=== PATIENT | female | born 1975 | race Caucasian/White ===

== ENCOUNTER 2025-01-20 08:23 | Outpatient (AMB) | payer OTHER, SELFPAY ==
--- NOTE | 2025-01-20 08:33 | MHC.OFFVIS ---
Intake Visit Reasons: ADHD Allergies No Known Allergies Allergy (Verified 01/20/25 08:33) Medication List - Last Reconciled 01/20/25 by Jaye Pastor CNP dextroamphetamine-amphetamine 20 mg (Adderall) 20 mg PO BID 30 days hydroxyzine HCl 25 mg PO lorazepam 0.5 mg PO BEDTIME PRN HPI Comments Details: She was doing okay. She had foot surgery in 09/2024 that required revision. She was taking Adderall 20mg and occasionally second dose in afternoon as needed. Medication helped with focus and was able to complete tasks, has energy to get through day. She notices a difference without the medication. Works at [employer]. Some stress. Her daughter in college was having some shaking in her hands. Sleep was okay.? Pt was having difficulty focusing since she was a kid and it is getting worse. She can't keep up with tasks. She barely made it through high school, went to college. She hasn't been dx with ADHD. No fam Hx of ADHD. She had head injury when she was 4yrs, she dropped off the deck. She sleeps 7hrs per night. She wakes up a lot because of some dreams and urine frequency. She has hard time going back to sleep when she wakes up. She has IBS controlled with diet. She has decreased hearing on the left ear and neck pain. Occasional axiety, particularly around events including dentist visits. [facility] Medical History (Updated 01/20/25 @ 08:36 by Jaye Pastor CNP) IBS (irritable bowel syndrome) Surgical History (Updated 01/20/25 @ 08:36 by Jaye Pastor CNP) S/P left knee surgery Review of Systems Const Denies chills, Denies daytime sleepiness, Denies difficulty sleeping, Denies fatigue, Denies fever(s), Denies frequent falls, Denies headache(s), Denies increased appetite, Denies poor appetite, Denies snoring, Denies weakness, Denies weight gain and Denies weight loss Eyes Denies loss of vision ENT Denies vertigo, Denies dizziness, Denies headache(s) and Denies neck pain Card Denies chest pain at rest, Denies chest pain with activity, Denies syncope, Denies leg edema, Denies palpitations, Denies dyspnea and Denies dyspnea on exertion Resp Denies cough, Denies dyspnea, Denies dyspnea on exertion and Denies snoring GI Denies abdominal pain, Denies constipation, Denies heartburn, Denies diarrhea and Denies nausea Denies urinary frequency, Denies urinary incontinence and Denies urinary urgency Musc Denies abnormal gait, Denies back pain, Denies myalgias, Denies arthralgias, Denies neck pain, Denies numbness and Denies tingling Neuro Denies abnormal gait, Denies vertigo, Denies dizziness, Denies syncope, Denies frequent falls, Denies headache(s), Denies lack of coordination, Denies loss of vision, Denies memory loss, Denies numbness, Denies Other visual disturbances, Denies restless legs, Denies seizure-like activity, Denies tingling, Denies paresthesias, Denies tremor(s) and Denies weakness Psych Reports anxiety, Denies depression, Denies auditory hallucinations, Denies memory loss and Denies visual hallucinations Endo Denies fatigue and Denies palpitations Physical Exam Const Other: General Appearance:? normal, in no acute distress. Heart:? S1, S2 normal, no murmurs. Lungs:? clear anteriorly and posteriorly. Musculoskeletal:? normal. Extremities:? no edema. Psych:? alert, oriented, cognitive function intact, cooperative with exam. Neuro Other: Abnormal Neurological Findings:?none.? Mental Status: alert and oriented X 3. Normal attention, orientation, memory, and affect. Cranial Nerves: Pupils are equal, round, and reactive to light. External ocular muscles are intact. Visual borja are full, no ptosis. Face is symmetrical, no facial weakness or droop. Facial sensations are normal. Tongue protrudes in midline. Palate elevates symmetrically. Shoulder shrugging is normal Motor Examination: Normal muscle tone, bulk and strength. No atrophy or fasciculations. No drift of the extended upper extremities. DTR 2+. Plantars are flexor. Sensory Exam: Normal light touch, temperature, pinprick, vibration, and joint-position sensations. Rhomberg sign is absent. Coordination: No ataxia. No titubation. Gait Exam: Within normal limits. Cerebellar Signs: [id number] is okay. Extrapyramidal System: No tremor, rigidity with normal facial expressions. No bradykinesia. No bradyphrenia. Normal arm swing and posture. No propulsion or retropulsion. Speech: Normal. Assessment & Plan Assessment & Plan (1) ADD (attention deficit disorder): Code(s): F98.8 - Other specified behavioral and emotional disorders with onset usually occurring in childhood and adolescence Category: Medical Qualifiers: Hyperactivity presence: unspecified Qualified Code(s): F98.8 - Other specified behavioral and emotional disorders with onset usually occurring in childhood and adolescence Plan: Continue Adderall 20mg 1 tablet twice a day. (2) Anxiety: Code(s): F41.9 - Anxiety disorder, unspecified Category: Medical Plan: Continue lorazepam 0.5mg 1 tablet at bedtime as needed for anxiety #30 for 30 days Medications: New lorazepam 0.5 mg PO BEDTIME PRN 30 tabs 2RF anxiety 30 days Coding Level of Care Code Est Pt Level 4 (14640) Diagnoses Attention deficit disorder, unspecified hyperactivity presence F98.8 Hyperactivity presence: unspecified Anxiety F41.9
== END 2025-01-20 08:44 | disposition home or self-care (01) ==
LOC: HO.HSM 08:23
PROVIDERS: PCP Internal Medicine; Referring Provider Internal Medicine; Visit Provider Registered Nurse
DX: F98.8 Other specified behavioral and emotional disorders with onset usually occurring in childhood and adolescence (principal); F41.9 Anxiety disorder, unspecified
CPT/HCPCS: 99214